=== PATIENT | female | born 1980 | race Caucasian/White ===

== ENCOUNTER 2018-05-02 11:10 | Emergency (ER) | payer OTHER ==
--- NOTE | 2018-05-02 12:07 | ED ---
Lower Extremity Injury HPI - General Chief Complaint: Extremity Injury, Lower Stated Complaint: lt foot injury Source: patient Mode of arrival: ambulatory Limitations: physical limitation - History of Present Illness Initial Comments: 37-year-old female who denies past medical history presenting today for chief complaint of left ankle pain. Patient states she was ago she rolled her left ankle, she states her ankles often develop bilaterally. She states this is nothing new however she noticed increasing pain following the incident. Patient denies fall, trauma to head or injury to any other action of any. Patient denies any knee pain. Patient does admit to some radiation towards the proximal foot. Patient has a numbness, tingling, loss sensation, paresthesias. Patient denies any coldness or pallor of the extremity. Patient states when pain persisted she presents today for evaluation. Patient states pain increases with range of motion as well as weightbearing. Patient has a significant soft tissue swelling or ecchymosis. Remainder of ROS negative, patient denies any recent fever, chills, shortness of breath, chest pain, back pain, abdominal pain, nausea or vomiting, numbness or tingling, dysuria or hematuria, constipation or diarrhea, headaches or visual changes, or any other complaints. Upon arrival patient is well-appearing, no signs of acute distress. Patient states she's been taking ibuprofen and Tylenol for pain management. Vital signs within acceptable limits. - Related Data Allergies Allergy/AdvReac Type Severity Reaction Status Date / Time cephalexin [From Keflex] Allergy Unknown Verified 05/02/18 11:58 Childhood ciprofloxacin [From Cipro] Allergy Rash/Hives Verified 05/02/18 11:59 erythromycin base Allergy Anaphylaxis Verified 05/02/18 11:59 Penicillins Allergy Unknown Verified 05/02/18 11:58 Childhood Sulfa (Sulfonamide Allergy Unknown Verified 05/02/18 11:58 Antibiotics) Childhood Review of Systems ROS Statement: Those systems with pertinent positive or pertinent negative responses have been documented in the HPI. ROS Other: All systems not noted in ROS Statement are negative. Past Medical History Past Medical History: Asthma, Fibromyalgia History of Any Multi-Drug Resistant Organisms: None Reported Past Surgical History: Ablation, Tubal Ligation Past Psychological History: No Psychological Hx Reported Smoking Status: Current every day smoker Past Alcohol Use History: None Reported Past Drug Use History: None Reported General Exam - General Exam Comments Initial Comments: General: The patient is awake and alert, in no distress, and does not appear acutely ill. Eye: Pupils are equal, round and reactive to light, extra-ocular movements are intact. No nystagmus. There is normal conjunctiva bilaterally. No signs of icterus. Cardiovascular: There is a regular rate and rhythm. No murmur, rub or gallop is appreciated. Respiratory: Lungs are clear to auscultation, respirations are non-labored, breath sounds are equal. No wheezes, stridor, rales, or rhonchi. Musculoskeletal: Mild soft tissue swelling noted along the lateral aspect of the left ankle. This is increasing comparison with the right. No ecchymosis. Patient admits to tenderness to patient along the lateral aspect of the left ankle. There is no evidence of wrist palpation of the proximal tibia and fibula. Extensor mechanism intact. No bogginess noted of the Achilles tendon. [place] intact, Normal ROM at the left ankle with eversion, inversion, plantar flexion and dorsiflexion. Strength 5/5. Sensation intact of the lower extremities equally bilaterally both proximal and distal to injury.. DP pulses equal bilaterally 2+. Neurological: A&O x 3. CN II-XII intact, There are no obvious motor or sensory deficits. Coordination appears grossly intact. Speech is normal. Skin: Skin is warm and dry and no rashes or lesions are noted. Psychiatric: Cooperative, appropriate mood & affect, normal judgment. Limitations: physical limitation Course Vital Signs 05/02/18 05/02/18 11:54 12:42 Temperature 98.1 F 98.2 F Pulse Rate 79 74 Respiratory 18 16 Rate Blood Pressure 131/91 128/87 O2 Sat by Pulse 99 98 Oximetry Medical Decision Making - Medical Decision Making XR obtained revealing. Pt PE findings concerning for mild sprain. Pt placed in Jorge Luis bandage. Patient given orthopedist surgery follow-up given persistence of pain. Patient instructed to continue taking ibuprofen and Tylenol for pain management, We also discussed rice instruction. At this time we feel patient is stable for discharge given she is neurovascularly intact, able to fully weight-bear and injury occurred 2 weeks ago. Patient is agreeable plan. I discussed the case with Dr. Prieto he agreed with impression and plan. Patient is discharged in stable condition. All imaging studies were reviewed by myself personally. Concur with radiology findings. Disposition Clinical Impression: Left ankle sprain Disposition: HOME SELF-CARE Condition: Good Instructions: Ankle Sprain (ED), R.I.C.E. Treatment (ED) Additional Instructions: Please use medication as discussed. Please follow-up with orthopedic surgery in next week. Please return to emergency room if the symptoms increase or worsen or for any other concerns. Is patient prescribed a controlled substance at d/c from ED?: No Referrals: Sherri Arevalo MD [Primary Care Provider] - 1-2 days Laurent Sal MD [STAFF PHYSICIAN] - 1-2 days Time of Disposition: 12:28
--- NOTE | 2018-05-02 12:22 | XR ---
EXAMINATION TYPE: XR foot complete LT DATE OF EXAM: 05/02/2018 COMPARISON: None HISTORY: Pain left foot and ankle following rolling injury today TECHNIQUE: Three-view left foot FINDINGS: Plantar calcaneal heel spur and Achilles tendon calcaneal heel spurs are present. Soft tissues are normal. No acute fractures are evident. Joint spaces are preserved. Follow-up study can be performed 7-10 days from acute trauma for continued pain. IMPRESSION: 1. No acute osseous abnormality left foot. 2. Calcaneal heel spurs.
--- NOTE | 2018-05-02 12:23 | XR ---
EXAMINATION TYPE: XR ankle complete LT DATE OF EXAM: 05/02/2018 COMPARISON: None HISTORY: Pain left foot and ankle following rolling injury TECHNIQUE: Three-view right ankle FINDINGS: Ankle mortise is intact. No acute fractures are evident. Soft tissues are normal. Calcaneal heel spurs are again evident. Follow-up studies can be performed 7-10 days from acute trauma for continued pain. IMPRESSION: 1. No acute osseous abnormality left ankle.
[2018-05-02 12:43] VITALS: BP 128/87; PULSE 74; RESP 16; TEMP 98.2
== END 2018-05-02 12:42 | disposition home or self-care (01) ==
LOC: EC 11:10
DX: S93.402A Sprain of unspecified ligament of left ankle, initial encounter (principal); F17.200 Nicotine dependence, unspecified, uncomplicated; Z88.1 Allergy status to other antibiotic agents; Z88.0 Allergy status to penicillin; Z88.2 Allergy status to sulfonamides; X50.1XXA Overexertion from prolonged static or awkward postures, initial encounter; Y92.009 Unspecified place in unspecified non-institutional (private) residence as the place of occurrence of the external cause
CPT/HCPCS: 99283

== ENCOUNTER → 2019-01-21 | Outpatient (CLI) | payer OTHER ==
--- NOTE | 2019-01-21 17:38 | MR ---
EXAMINATION TYPE: MR brain wo/w con DATE OF EXAM: 01/21/2019 COMPARISON: HISTORY: Other fatigue / Weakness TECHNIQUE: Multiplanar, multisequence images of the brain and brainstem is performed without and with IV contras t, utilizing 7.5 mL intravenous Gadavist . FINDINGS: Ventricles have normal size. There is no mass effect nor midline shift. There is no sign of intracran ial hemorrhage. There is no evidence of cortical infarct. Corpus callosum appears normal. Sella turci ca appears normal. The ramon-white matter structures have fairly normal signal pattern. There is a sin gle 5 mm focus of increased signal in the left temporal lobe white matter. There are a few 2 mm foci of increased signal in the left posterior temporal lobe white matter. IMPRESSION: There are left temporal lobe scattered white matter high signal foci at the ramon-white ma tter junction. This could relate to focal chronic small vessel ischemia. Otherwise negative exam. I d o not suspect demyelinating disease.
== END | disposition home or self-care (01) ==
LOC: RADMRIMAIN 14:46
PROVIDERS: ATTEND Family Medicine
DX: R53.83 Other fatigue (principal); R53.1 Weakness; H57.89 Other specified disorders of eye and adnexa; Z91.89 Other specified personal risk factors, not elsewhere classified
CPT/HCPCS: 70553; A9585

== ENCOUNTER → 2019-02-17 | Outpatient (CLI) | payer OTHER ==
--- NOTE | 2019-02-20 19:03 | P.PN ---
Progress Note - Text Progress Note Date: 02/20/19 This is a report on the 24-hour DCG. Baseline EKG showed sinus rhythm. Patient remained in sinus rhythm throughout the recording with an average heart rate of 87. The minimum was 51 and maximum 37. Occasional APCs and PVCs were noted. No accompanying diary. Final impression: #1. Sinus rhythm. #2 occasional APCs. #3 occasional PVCs. #4. No diary
--- NOTE | 2019-02-21 11:11 | HM ---
This is a report on the 24-hour DCG. Baseline EKG showed sinus rhythm. Patient remained in sinus rhythm throughout the recording with an average heart rate of 87. The minimum was 51 and maximum 37. Occasional APCs and PVCs were noted. No accompanying diary. Final impression: #1. Sinus rhythm. #2 occasional APCs. #3 occasional PVCs. #4. No diary MTDD
== END ==
LOC: RADECHMAIN 08:19
PROVIDERS: ATTEND Psychiatry & Neurology Neurology
DX: I49.1 Atrial premature depolarization (principal); I49.3 Ventricular premature depolarization
CPT/HCPCS: 93225; 93226

== ENCOUNTER → 2020-05-01 | Outpatient (CLI) | payer OTHER | END | disposition home or self-care (01) | LOC: LABWHC1 12:51 | PROVIDERS: ATTEND Nurse Practitioner Family | DX: Z20.828 Contact with and (suspected) exposure to other viral communicable diseases (principal) | CPT/HCPCS: U0003; C9803 ==

== ENCOUNTER 2020-07-25 09:18 | Day surgery (SDC) | payer OTHER ==
[~2020-07-25 09:18] MED LIST: LIDOCAINE 1% (10MG/ML) FOR IV START INTRADERMA PRN
[2020-07-25] MEDS ORDERED: LIDOCAINE 1% (10MG/ML) FOR IV START SQ ONE (10:35)
[2020-07-25 10:38] VITALS: TEMP 98.2
[2020-07-25] MEDS: LACTATED RINGERS 1,000 ML IV SCH ×2 (10:38→11:12)
[2020-07-25] MEDS ORDERED: LIDOCAINE 1% INJ 10MG/ML (20 ML MDV) ONE (11:33)
[2020-07-25] MEDS ORDERED: PROPOFOL 10 MG/ML 20 ML VIAL IV ONE (11:33)
--- NOTE | 2020-07-25 11:48 | P.PCN ---
Date of Procedure: 07/25/20 Description of Procedure: BRIEF HISTORY: Patient is a 40-year-old female presenting for outpatient EGD for evaluation of epigastric abdominal pain. Patient has no history of heartburn and reports 3 years of epigastric abdominal pain. She describes burning and sharp pain and epigastric region of her abdomen. Denies any weight loss, hematemesis or GI bleeding. She does take Motrin as needed for pain. She was on omeprazole and Pepcid with no help. PROCEDURE PERFORMED: Esophagogastroduodenoscopy with biopsy. PREOPERATIVE DIAGNOSIS: Epigastric abdominal pain, GERD. ESTIMATED BLOOD LOSS: Minimal. IV sedation per anesthesia. PROCEDURE: After informed consent was obtained, the patient was brought into the endoscopy unit. IV sedation was administered by Anesthesia under continuous monitoring. Initially the Olympus GIF-190 video endoscope was inserted into the mouth. Esophagus intubated without any difficulty. It was gradually advanced into the stomach and duodenum and carefully examined. The bulb and the second part of the duodenum appeared normal, with biopsies taken to rule out celiac sprue. The scope at this time was withdrawn to the stomach, adequately insufflated with air, and upon careful examination, mucosa of the antrum, body, cardia and the fundus appeared normal, except for some mild scattered erythema in the antrum and body suggestive of mild gastritis biopsy. The scope was then withdrawn into the esophagus. The GE junction was located at 37 cm from the incisors and biopsied. The esophagus appeared normal. There were no erosions or ulcerations seen and the patient tolerated the procedure well. IMPRESSION: 1. Mild gastritis. 2. Biopsies of the duodenum, antrum body and GE junction. RECOMMENDATIONS: The findings of this examination were discussed with the patient and her family. Okay to resume diet. Okay to resume medications. Await pathology from biopsies. Follow up in the GI clinic as scheduled..
[2020-07-25 12:04] VITALS: BP 107/65; PULSE 74; RESP 17
== END 2020-07-25 12:35 | disposition home or self-care (01) ==
LOC: ORWHC2ENDO 09:18
PROVIDERS: ATTEND Internal Medicine
DX: K29.50 Unspecified chronic gastritis without bleeding (principal); K21.00 Gastro-esophageal reflux disease with esophagitis, without bleeding; Z79.899 Other long term (current) drug therapy; Z98.890 Other specified postprocedural states; J45.909 Unspecified asthma, uncomplicated; F17.200 Nicotine dependence, unspecified, uncomplicated; Z88.1 Allergy status to other antibiotic agents; Z88.0 Allergy status to penicillin; Z88.2 Allergy status to sulfonamides; Z88.8 Allergy status to other drugs, medicaments and biological substances
CPT/HCPCS: 81025; 88305; 43239; J2001; J2704

== ENCOUNTER → 2020-08-09 | Outpatient (CLI) | payer OTHER ==
--- NOTE | 2020-08-09 12:33 | US ---
EXAMINATION TYPE: US abdomen limited DATE OF EXAM: 08/09/2020 COMPARISON: NONE CLINICAL HISTORY: 40-year-old female R10.13 Epigastric pain. Patient states CT done elsewhere showed 2 gallstones. TECHNIQUE: Multiple sonographic images of the right upper quadrant are obtained. FINDINGS: EXAM MEASUREMENTS: Liver Length: 17.6 cm Gallbladder Wall: 0.4 cm CBD: 0.4 cm Right Kidney: 11.8 x 5.8 x 4.9 cm Pancreas: Only a small portion of the pancreatic head and neck is seen. Remainder is obscured by bow el gas shadowing. Liver: Borderline enlarged. Allowing for technical limitations due to the patient body habitus, no f ocal lesion is identified. Gallbladder: Gallbladder wall is mildly thickened up to 3.7 mm. Multiple small mobile gallstones are present measuring up to 1.2 cm. No surrounding fluid or abnormal distention. Evidence for sonographic Fernandez's sign: Yes CBD: Normal caliber. Right Kidney: No hydronephrosis. IMPRESSION: 1. Borderline hepatomegaly at 17.6 cm. 2. Cholelithiasis with mild gallbladder wall thickening. Findings suggest chronic cholecystitis. Ramirez bry, given a positive sonographic Fernandez sign, recommend clinical correlation to exclude early develo ping acute cholecystitis. There is no hydropic change that is generally seen with cystic duct obstruc tion. If further imaging evaluation is desired, HIDA scan can be considered. 3. No biliary ductal dilatation.
== END | disposition home or self-care (01) ==
LOC: RADUSWWP 08:10
PROVIDERS: ATTEND Internal Medicine Gastroenterology
DX: K80.20 Calculus of gallbladder without cholecystitis without obstruction (principal)
CPT/HCPCS: 76705

== ENCOUNTER → 2020-08-23 | Day surgery (SDC) | payer OTHER ==
[2020-08-20 12:00] VITALS: BMI 29.9
[~2020-08-23] MED LIST changes: +ACETAMINOPHEN TAB 500 MG TAB PO PRN; +BUPIVACAINE (PF) 0.25% 30 ML VIAL SQ ONE; +CLINDAMYCIN 900 MG in DEXTROSE 5% IN WATER 50 ML IVPB PRN; +DEXAMETHASONE SOD PHOSPHATE 4 MG/ML 1 ML VIAL IV ONE; +GENTAMICIN 360 MG in SODIUM CHLORIDE 0.9% 100 ML IVPB PRN; +GLYCOPYRROLATE 0.2 MG/ML 2 ML VIAL ONE; +HEPARIN SODIUM,PORCINE/PF 5,000 UNIT/0.5 ML SYRINGE SQ PRN; +HYDROcodone/APAP 7.5-325MG 1 EACH TAB ONE; +HYDROcodone/APAP 7.5-325MG 1 EACH TAB PO ONE; +LACTATED RINGERS 1,000 ML IV ONE; +LACTATED RINGERS 1,000 ML IV SCH; -LIDOCAINE 1% (10MG/ML) FOR IV START INTRADERMA PRN; +LIDOCAINE 1% INJ 10MG/ML (20 ML MDV) ONE; +MIDAZOLAM 2 MG/2 ML VIAL IV PRN; +MIDAZOLAM 2 MG/2 ML VIAL ONE; +NEOSTIGMINE 1 MG/ML 10 ML VIAL ONE; +ONDANSETRON 4 MG/2 ML VIAL IVP ONE; +ONDANSETRON 4 MG/2 ML VIAL ONE; +PROPOFOL 10 MG/ML 20 ML VIAL IV ONE; +ROCURONIUM 10 MG/ML (5 ML VIAL) IV ONE; +SCOPOLAMINE 1.5MG/72HR PATCH TRANSDERM ONE; +SUCCINYLCHOLINE CHLORIDE 100 MG/5 ML SYR IV ONE; +diphenhydrAMINE 50 MG/ML 1 ML VIAL IVP ONE; +fentaNYL (PF) 50 MCG/ML 2 ML AMP ONE
--- NOTE | 2020-08-23 11:34 | P.GSHP ---
History of Present Illness H&P Date: 08/23/20 Chief Complaint: Right upper quadrant pain This is a 32-year-old female who presents today for laparoscopically cholecystectomy. Patient has had issues with right upper quadrant pain. She is found have gallstones on workup. Past Medical History Past Medical History: Asthma, GERD/Reflux, Pneumonia Additional Past Medical History / Comment(s): constipation, RUQ pain, gallstones History of Any Multi-Drug Resistant Organisms: None Reported Past Surgical History: Tubal Ligation, Uterine Ablation Additional Past Surgical History / Comment(s): sinus surgery as a child, breasts lanced for infection, recent EGD Past Anesthesia/Blood Transfusion Reactions: No Reported Reaction, Postoperative Nausea & Vomiting (PONV) Additional Past Anesthesia/Blood Transfusion Reaction / Comment(s): states ponv she thought was from heavy pain medication Smoking Status: Current every day smoker - Past Family History Mother Family Medical History: No Reported History Medications and Allergies Home Medications Medication Instructions Recorded Confirmed Type Acetaminophen Tab [Tylenol Tab] 1,000 mg PO Q8HR PRN 07/23/20 08/20/20 History Cetirizine HCl [Zyrtec] 10 mg PO DAILY 07/23/20 08/20/20 History Cyanocobalamin (Vitamin B-12) 1,000 mcg PO Q48H 07/23/20 08/23/20 History [Vitamin B-12] Ergocalciferol (Vitamin D2) 1,250 mcg PO WEEKLY 07/23/20 08/23/20 History [Vitamin D2 (50,000 Iu)] Famotidine [Pepcid] 20 mg PO HS 07/23/20 08/20/20 History Ibuprofen [Motrin] 800 mg PO Q8H PRN 07/23/20 08/20/20 History Montelukast [Singulair] 10 mg PO HS 07/23/20 08/20/20 History Omalizumab [Xolair] 375 mg SQ Q14D 07/23/20 08/23/20 History Omeprazole [PriLOSEC] 40 mg PO DAILY 07/23/20 08/20/20 History amLODIPine BESYLATE 5 mg PO HS 07/23/20 08/20/20 History Ondansetron [Zofran] 4 mg PO Q8HR PRN 08/20/20 08/23/20 History traMADol HCL [Ultram] 50 - 100 mg PO Q6HR PRN 08/20/20 08/23/20 History Allergies Allergy/AdvReac Type Severity Reaction Status Date / Time cephalexin [From Keflex] Allergy Unknown Verified 08/23/20 11:14 Childhood ciprofloxacin [From Cipro] Allergy Rash/Hives Verified 08/23/20 11:14 erythromycin base Allergy Anaphylaxis Verified 08/23/20 11:14 Penicillins Allergy Unknown Verified 08/23/20 11:14 Childhood Sulfa (Sulfonamide Allergy Unknown Verified 08/23/20 11:14 Antibiotics) Childhood dichloralphenazone AdvReac Unknown Nausea & Verified 08/23/20 11:14 [From Midrin] Vomiting isometheptene [From Midrin] AdvReac Unknown Nausea & Verified 08/23/20 11:14 Vomiting Surgical - Exam Vital Signs Temp Pulse Resp BP Pulse Ox 97.5 F L 86 16 125/87 97 08/23/20 11:11 08/23/20 11:11 08/23/20 11:11 08/23/20 11:11 08/23/20 11:11 - General well developed, well nourished, no distress - Eyes PERRL - ENT normal pinna - Neck no masses - Respiratory normal expansion - Cardiovascular Rhythm: regular - Abdomen Abdomen: soft, non tender Assessment and Plan Assessment: Cholelithiasis. We'll perform laparoscopic cholecystectomy
--- NOTE | 2020-08-23 13:38 | P.OP ---
Date of Procedure: 08/23/20 Preoperative Diagnosis: Cholecystitis Postoperative Diagnosis: Cholecystitis Procedure(s) Performed: Laparoscopic cholecystectomy Anesthesia: BRYAN Surgeon: Eulogio Shoemaker Estimated Blood Loss (ml): 5 Pathology: other (Gallbladder) Condition: stable Disposition: PACU Description of Procedure: The patient was placed on the operating table. The patient received a general endotracheal tube anesthesia. The patients abdomen was prepped and draped in the usual sterile fashion. Through an infraumbilical stab incision, the fascia of the anterior abdominal wall was grasped with a pair of Kochers and then the Veress needle was placed in the peritoneal cavity. Position of the Veress needle was confirmed with positive drop test. The abdomen was then insufflated. After adequate insufflation, the 10 mm trocar was placed in the peritoneal cavity. Following this the laparoscope was placed in the peritoneal cavity. The patient was placed in the head-up, right side up position and then a 5 mm trocar was placed in the right lateral and right subcostal position under direct visualization. A 8 mm trocar was placed in the epigastric position. The gallbladder was grasped in the fundus and infundibulum. Traction on the gallbladder was placed in the lateral and the cephalad positions. The triangle of [place]ot was visualized.. The cystic duct was bluntly dissected until the union of the cystic duct and common bile duct was seen. A critical view of safety was achieved. The cystic duct was then divided and sealed with the Harmonic scissors. A PDS Endoloop was then placed throughout the cystic duct stump. The cystic artery divided and sealed with the Harmonic scissors. The gallbladder was then removed from the liver bed using Harmonic scissors. The gallbladder was then extracted through the epigastric port site. Operative field was checked for any bleeding spots and Harmonic scissors was used to coagulate the liver bed. The abdomen was irrigated. The trocars were removed. The skin was closed using interrupted 3-0 Vicryl suture. Dermabond dressing were applied. The patient tolerated the procedure well.
[2020-08-23 13:40] VITALS: TEMP 98
[2020-08-23] MEDS: HYDROmorphone 0.5 MG/0.5 ML SYRINGE IVP PRN ×4 (13:48→14:10)
[2020-08-23 14:40] VITALS: RESP 17
[2020-08-23 15:46] VITALS: BP 133/80; PULSE 82
== END | disposition home or self-care (01) ==
LOC: OR 10:51
PROVIDERS: ATTEND Surgery
DX: K80.12 Calculus of gallbladder with acute and chronic cholecystitis without obstruction (principal); J45.909 Unspecified asthma, uncomplicated; K21.9 Gastro-esophageal reflux disease without esophagitis; Z87.01 Personal history of pneumonia (recurrent); Z87.898 Personal history of other specified conditions; K59.00 Constipation, unspecified; Z98.51 Tubal ligation status; Z98.890 Other specified postprocedural states; F17.200 Nicotine dependence, unspecified, uncomplicated; Z79.899 Other long term (current) drug therapy; Z88.1 Allergy status to other antibiotic agents; Z88.0 Allergy status to penicillin; Z88.2 Allergy status to sulfonamides; Z88.8 Allergy status to other drugs, medicaments and biological substances; I10 Essential (primary) hypertension; Z97.2 Presence of dental prosthetic device (complete) (partial)
CPT/HCPCS: 81025; 88304; 47562; J2250; J1200; J1100; J2710; J2405; J2001; J3010; J1580; J0330; J2704; J1170; J1644

== ENCOUNTER → 2020-09-04 | Outpatient (CLI) | payer OTHER ==
[2020-09-04 15:00] LABS: HCT 43.5 % (37.2-46.3); HGB 14.2 g/dL (12.0-15.0); MCH 30.1 pg (27.0-32.0); MCHC 32.6 g/dL (32.0-37.0); MCV 92.4 fL (80.0-97.0); Mean Platelet Volume 10.1 fL (9.5-12.2); Platelet Count 449 X 10*3/uL (140-440); RBC 4.71 X 10*6/uL (4.10-5.20); RDW 11.8 % (11.5-14.5); WBC 10.73 X 10*3/uL (4.50-10.00)
[2020-09-05 02:10] LABS: African American GFR (CKD) 108.4 (60.0-200.0); Albumin 4.6 g/dL (3.80-4.90); Anion Gap 14.9 mmol/L (4.00-12.00); BUN/Creat Ratio 8.75 Ratio (12.00-20.00); Calcium 9.8 mg/dL (8.7-10.3); Carbon Dioxide 24.1 mmol/L (21.6-31.8); Globulin 2.3 g/dL (1.6-3.3); Non-African American GFR(CKD) 93.5 (60.0-200.0); Potassium 4.4 mmol/L (3.5-5.5); Total Bilirubin 0.6 mg/dL (0.3-1.2); Total Protein 6.9 g/dL (6.2-8.2)
== END | disposition home or self-care (01) ==
LOC: LABWHC1 07:49
PROVIDERS: ATTEND Surgery
DX: K80.50 Calculus of bile duct without cholangitis or cholecystitis without obstruction (principal)
CPT/HCPCS: 36415; 80053; 85027

== ENCOUNTER → 2020-09-11 | Outpatient (CLI) | payer OTHER ==
[2020-09-12 04:35] LABS: African American GFR (CKD) 108.4 (60.0-200.0); Albumin 4.5 g/dL (3.80-4.90); Albumin/Globulin Ratio 1.96 (1.60-3.17); Anion Gap 9.3 mmol/L (4.00-12.00); Calcium 9.7 mg/dL (8.7-10.3); Carbon Dioxide 26.7 mmol/L (21.6-31.8); Globulin 2.3 g/dL (1.6-3.3); Non-African American GFR(CKD) 93.5 (60.0-200.0); Potassium 4.5 mmol/L (3.5-5.5); Total Bilirubin 0.6 mg/dL (0.3-1.2); Total Protein 6.8 g/dL (6.2-8.2)
== END | disposition home or self-care (01) ==
LOC: LABWHC1 07:45
PROVIDERS: ATTEND Surgery
DX: K80.70 Calculus of gallbladder and bile duct without cholecystitis without obstruction (principal)
CPT/HCPCS: 36415; 80053

== ENCOUNTER 2020-09-19 20:14 | Emergency (ER) | payer OTHER ==
[2020-09-19] MEDS ORDERED: SODIUM CHLORIDE 0.9% 1,000 ML IV STA (23:20)
[2020-09-19] MEDS ORDERED: ONDANSETRON 4 MG/2 ML VIAL IVP STA (23:20)
[2020-09-19] MEDS ORDERED: MORPHINE SULFATE 4 MG/ML SYRINGE IV STA (23:20)
[2020-09-20 00:25] LABS: Basophils # (A) 0.1 k/uL (0-0.2); Basophils % (A) 1 %; Eosinophils # (A) 0.3 k/uL (0-0.7); Eosinophils % (A) 3 %; HCT 42.6 % (34.0-46.0); HGB 14.7 gm/dL (11.4-16.0); Lymphocytes # (A) 3.9 k/uL (1.0-4.8); Lymphocytes % (A) 30 %; MCH 30.3 pg (25.0-35.0); MCHC 34.6 g/dL (31.0-37.0); MCV 87.7 fL (80.0-100.0); Mean Platelet Volume 7.4; Monocytes # (A) 0.7 k/uL (0-1.0); Monocytes % (A) 5 %; Neutrophils # (A) 8.1 k/uL (1.3-7.7); Neutrophils % (A) 61 %; Platelet Count 333 k/uL (150-450); RBC 4.86 m/uL (3.80-5.40); WBC 13.2 k/uL (3.8-10.6)
--- NOTE | 2020-09-20 00:25 | CT ---
EXAMINATION TYPE: CT abdomen pelvis w con DATE OF EXAM: 09/20/2020 COMPARISON: None HISTORY: RUQ pain; recent cholecystectomy CT DLP: 1070.2 mGycm Automated exposure control for dose reduction was used. CONTRAST: Performed with IV Contrast, patient injected with 100 mL of Isovue 300. Images obtained from the diaphragm to the floor the pelvis with IV contrast. Lung bases are clear. There is no pleural effusion. Heart size is normal. There is no pericardial eff usion. There is no adrenal mass. Kidneys show satisfactory contrast opacification. There is no hydronephrosi s. Ureters are not dilated. Delayed images show normal renal excretion. There is 1 cm cortical cyst p osterior left kidney. Liver spleen stomach pancreas appear intact. The bile ducts are not dilated. There are clips from cho lecystectomy. There is no retroperitoneal adenopathy. Appendix is posterior and appears normal. Bladder distends sm oothly. There is no inguinal hernia. There is no free fluid in the pelvis. Uterus is anteverted. Ther e is no pelvic mass. Lumbar vertebra have normal spacing and alignment. Posterior elements are intact . There is no compression fracture. The bony pelvis is intact. Hip joints appear normal. Sacroiliac j oints appear normal. There is no mesenteric edema. There is no ascites or free air. There is no bowel obstruction. IMPRESSION: Negative CT scan abdomen and pelvis. No evidence of a bile leak. No dilated ducts.
[2020-09-20 00:28] LABS: Appearance,Urine Clear (Clear); Bilirubin,Urine Negative (Negative); Blood,Urine Negative (Negative); Color,Urine Yellow; Glucose,Urine (UA) Negative (Negative); Ketones,Urine Negative (Negative); Leukocyte Esterase,Urine Negative (Negative); Nitrite,Urine Negative (Negative); PH, Urine 5.5 (5.0-8.0); Protein,Urine Negative (Negative); Specific Gravity,Urine 1.016 (1.001-1.035); Urobilinogen,Urine <2.0 mg/dL (<2.0)
[2020-09-20 00:35] LABS: ALT 24 U/L (4-34); AST 27 U/L (14-36); African American GFR (CKD) >90 (>60 ml/min/1.73 sqM); Albumin 4.5 g/dL (3.5-5.0); Alkaline Phosphatase 108 U/L (38-126); Anion Gap 10 mmol/L; Blood Urea Nitrogen 9 mg/dL (7-17); Calcium 9.7 mg/dL (8.4-10.2); Carbon Dioxide 27 mmol/L (22-30); Chloride 102 mmol/L (98-107); Glucose 101 mg/dL (74-99); Lipase 73 U/L (23-300); Non-African American GFR(CKD) >90 (>60 ml/min/1.73 sqM); Potassium 3.7 mmol/L (3.5-5.1); Sodium 139 mmol/L (137-145); Total Bilirubin 0.4 mg/dL (0.2-1.3); Total Protein 7.2 g/dL (6.3-8.2)
[2020-09-20] MEDS ORDERED: ACET/COD 300 MG/30 MG STARTER PACK 6 TAB BTL PO STA (00:55)
--- NOTE | 2020-09-20 00:55 | ED ---
Abdominal Pain HPI - General Chief Complaint: Abdominal Pain Stated Complaint: Stomach Pain Time Seen by Provider: 09/19/20 21:28 Source: patient Mode of arrival: ambulatory Limitations: no limitations - History of Present Illness Initial Comments: 40 year-old female patient presents to the emergency department for evaluation of right upper quadrant abdominal pain. Patient states that she has had pain since having cholecystectomy about [address] Shoemaker. Patient states that she was eating tonight when her symptoms worsened. Reports a sharp pain to the right upper quadrant. Pain is non-radiating. Denies nausea or vomiting. States she always has diarrhea. Denies any hematochezia or melena. Denies fever or chills. Did have a CT scan two weeks ago that showed fluid in her abdomen. States her liver enzymes were elevated at that time as well. Patient denies any recent rash, cough, shortness of breath, chest pain, back pain, numbness, tingling, dizziness, weakness, hematuria, dysuria, urinary urgency, urinary frequency, headache, visual changes, or any other complaints. - Related Data Home Medications Medication Instructions Recorded Confirmed Acetaminophen Tab [Tylenol Tab] 1,000 mg PO Q8HR PRN 07/23/20 08/20/20 Cetirizine HCl [Zyrtec] 10 mg PO DAILY 07/23/20 08/20/20 Cyanocobalamin (Vitamin B-12) 1,000 mcg PO Q48H 07/23/20 08/23/20 [Vitamin B-12] Ergocalciferol (Vitamin D2) 1,250 mcg PO WEEKLY 07/23/20 08/23/20 [Vitamin D2 (50,000 Iu)] Famotidine [Pepcid] 20 mg PO HS 07/23/20 08/20/20 Ibuprofen [Motrin] 800 mg PO Q8H PRN 07/23/20 08/20/20 Montelukast [Singulair] 10 mg PO HS 07/23/20 08/20/20 Omalizumab [Xolair] 375 mg SQ Q14D 07/23/20 08/23/20 Omeprazole [PriLOSEC] 40 mg PO DAILY 07/23/20 08/20/20 amLODIPine BESYLATE 5 mg PO HS 07/23/20 08/20/20 Ondansetron [Zofran] 4 mg PO Q8HR PRN 08/20/20 08/23/20 traMADol HCL [Ultram] 50 - 100 mg PO Q6HR PRN 08/20/20 08/23/20 Previous Rx's Medication Instructions Recorded Acetaminophen Tab [Tylenol] 650 mg PO Q6H #30 tab 08/23/20 Docusate [Colace] 100 mg PO BID #20 capsule 08/23/20 Ibuprofen [Motrin] 600 mg PO Q6HR PRN #40 tab 08/23/20 oxyCODONE HCL [OxyIR] 5 mg PO Q6H PRN 3 Days #10 tab 08/23/20 Allergies Allergy/AdvReac Type Severity Reaction Status Date / Time cephalexin [From Keflex] Allergy Unknown Verified 09/19/20 20:30 Childhood ciprofloxacin [From Cipro] Allergy Rash/Hives Verified 09/19/20 20:30 erythromycin base Allergy Anaphylaxis Verified 09/19/20 20:30 Penicillins Allergy Unknown Verified 09/19/20 20:30 Childhood Sulfa (Sulfonamide Allergy Unknown Verified 09/19/20 20:30 Antibiotics) Childhood dichloralphenazone AdvReac Unknown Nausea & Verified 09/19/20 20:30 [From Midrin] Vomiting isometheptene [From Midrin] AdvReac Unknown Nausea & Verified 09/19/20 20:30 Vomiting Review of Systems ROS Statement: Those systems with pertinent positive or pertinent negative responses have been documented in the HPI. ROS Other: All systems not noted in ROS Statement are negative. Past Medical History Past Medical History: No Reported History Additional Past Medical History / Comment(s): constipation, stomach pain. History of Any Multi-Drug Resistant Organisms: None Reported Past Surgical History: Cholecystectomy Additional Past Surgical History / Comment(s): sinus surgery as a child, breasts lanced for infection Past Anesthesia/Blood Transfusion Reactions: No Reported Reaction, Postoperative Nausea & Vomiting (PONV) Additional Past Anesthesia/Blood Transfusion Reaction / Comment(s): states ponv she thought was from heavy pain medication Past Psychological History: No Psychological Hx Reported Smoking Status: Current every day smoker Past Alcohol Use History: None Reported Past Drug Use History: None Reported - Past Family History Mother Family Medical History: No Reported History General Exam Limitations: no limitations General appearance: alert, in no apparent distress, other (This is a well- developed, well-nourished adult female patient in no acute distress. Vital sig ns upon presentation are temperature 98.0F, pulse 111, respirations 18, blood pressure 139/84, pulse ox 97% on room air.) Eye exam: Present: normal appearance, PERRL, EOMI. Absent: scleral icterus, conjunctival injection, periorbital swelling ENT exam: Present: normal exam, normal oropharynx, mucous membranes moist Respiratory exam: Present: normal lung sounds bilaterally. Absent: respiratory distress, wheezes, rales, rhonchi, stridor Cardiovascular Exam: Present: regular rate, normal rhythm, normal heart sounds. Absent: systolic murmur, diastolic murmur, rubs, gallop, clicks GI/Abdominal exam: Present: soft, tenderness (Right upper quadrant), normal bowel sounds. Absent: distended, guarding, rebound, rigid Back exam: Present: normal inspection. Absent: CVA tenderness (R), CVA tenderness (L) Neurological exam: Present: alert, oriented X3, CN II-XII intact Psychiatric exam: Present: normal affect, normal mood Skin exam: Present: warm, dry, intact, normal color. Absent: rash Course Vital Signs 09/19/20 20:30 Temperature 98.0 F Pulse Rate 111 H Respiratory 18 Rate Blood Pressure 139/84 O2 Sat by Pulse 97 Oximetry Medical Decision Making - Medical Decision Making 40-year-old female patient presents to the emergency department today for evaluation of right upper quadrant pain. Physical examination did reveal right upper quadrant tenderness. No CVA tenderness. Abdominal incisions are well- healed with no surrounding erythema or swelling. Labs reviewed and did reveal elevated white blood cell count at 13.2. CT abdomen and pelvis was obtained and was negative. Did discuss findings and results with the patient. She'll be dis charged follow up with her surgeon for further evaluation. Return parameters were discussed in detail. She verbalizes understanding and agrees with this plan. Case discussed with my attending Dr. Hernandez. - Lab Data Result diagrams: 09/19/20 23:20 09/19/20 23:20 Lab Results 09/19/20 09/19/20 09/19/20 Range/Units 23:20 23:20 23:20 WBC 13.2 H (3.8-10.6) k/uL RBC 4.86 (3.80-5.40) m/uL Hgb 14.7 (11.4-16.0) gm/dL Hct 42.6 (34.0-46.0) % MCV 87.7 (80.0-100.0) fL MCH 30.3 (25.0-35.0) pg MCHC 34.6 (31.0-37.0) g/dL RDW 12.0 (11.5-15.5) % Plt Count 333 (150-450) k/uL MPV 7.4 Neutrophils % 61 % Lymphocytes % 30 % Monocytes % 5 % Eosinophils % 3 % Basophils % 1 % Neutrophils # 8.1 H (1.3-7.7) k/uL Lymphocytes # 3.9 (1.0-4.8) k/uL Monocytes # 0.7 (0-1.0) k/uL Eosinophils # 0.3 (0-0.7) k/uL Basophils # 0.1 (0-0.2) k/uL Sodium 139 (137-145) mmol/L Potassium 3.7 (3.5-5.1) mmol/L Chloride 102 (98-107) mmol/L Carbon Dioxide 27 (22-30) mmol/L Anion Gap 10 mmol/L BUN 9 (7-17) mg/dL Creatinine 0.70 (0.52-1.04) mg/dL Est GFR (CKD-EPI)AfAm >90 (>60 ml/min/1.73 sqM) Est GFR (CKD-EPI)NonAf >90 (>60 ml/min/1.73 sqM) Glucose 101 H (74-99) mg/dL Plasma Lactic Acid [place] (0.7-2.0) mmol/L Calcium 9.7 (8.4-10.2) mg/dL Total Bilirubin 0.4 (0.2-1.3) mg/dL AST 27 (14-36) U/L ALT 24 (4-34) U/L Alkaline Phosphatase 108 (38-126) U/L Total Protein 7.2 (6.3-8.2) g/dL Albumin 4.5 (3.5-5.0) g/dL Lipase 73 (23-300) U/L Urine Color Yellow Urine Appearance Clear (Clear) Urine pH 5.5 (5.0-8.0) Ur Specific [place] 1.016 (1.001-1.035) Urine Protein Negative (Negative) Urine Glucose (UA) Negative (Negative) Urine Ketones Negative (Negative) Urine Blood Negative (Negative) Urine Nitrite Negative (Negative) Urine Bilirubin Negative (Negative) Urine Urobilinogen <2.0 (<2.0) mg/dL Ur Leukocyte Esterase Negative (Negative) 09/19/20 Range/Units 23:20 WBC (3.8-10.6) k/uL RBC (3.80-5.40) m/uL Hgb (11.4-16.0) gm/dL Hct (34.0-46.0) % MCV (80.0-100.0) fL MCH (25.0-35.0) pg MCHC (31.0-37.0) g/dL RDW (11.5-15.5) % Plt Count (150-450) k/uL MPV Neutrophils % % Lymphocytes % % Monocytes % % Eosinophils % % Basophils % % Neutrophils # (1.3-7.7) k/uL Lymphocytes # (1.0-4.8) k/uL Monocytes # (0-1.0) k/uL Eosinophils # (0-0.7) k/uL Basophils # (0-0.2) k/uL Sodium (137-145) mmol/L Potassium (3.5-5.1) mmol/L Chloride (98-107) mmol/L Carbon Dioxide (22-30) mmol/L Anion Gap mmol/L BUN (7-17) mg/dL Creatinine (0.52-1.04) mg/dL Est GFR (CKD-EPI)AfAm (>60 ml/min/1.73 sqM) Est GFR (CKD-EPI)NonAf (>60 ml/min/1.73 sqM) Glucose (74-99) mg/dL Plasma Lactic Acid [place] 1.0 (0.7-2.0) mmol/L Calcium (8.4-10.2) mg/dL Total Bilirubin (0.2-1.3) mg/dL AST (14-36) U/L ALT (4-34) U/L Alkaline Phosphatase (38-126) U/L Total Protein (6.3-8.2) g/dL Albumin (3.5-5.0) g/dL Lipase (23-300) U/L Urine Color Urine Appearance (Clear) Urine pH (5.0-8.0) Ur Specific [place] (1.001-1.035) Urine Protein (Negative) Urine Glucose (UA) (Negative) Urine Ketones (Negative) Urine Blood (Negative) Urine Nitrite (Negative) Urine Bilirubin (Negative) Urine Urobilinogen (<2.0) mg/dL Ur Leukocyte Esterase (Negative) - Radiology Data Radiology results: report reviewed, image reviewed CT abdomen and pelvis with contrast was obtained. Report was reviewed in its entirety. Impression by Dr. Campbell shows negative computed tomography scan abdomen and pelvis. No evidence of a bile leak. No dilated ducts. Disposition Clinical Impression: Abdominal pain Disposition: HOME SELF-CARE Condition: Good Instructions (If sedation given, give patient instructions): Abdominal Pain (ED) Additional Instructions: Follow up with Dr. Shoemaker as soon as possible. Return to the emergency department for further evaluation for any new, worsening, or concerning symptom s. Is patient prescribed a controlled substance at d/c from ED?: No Referrals: Karen Orlando MD [Primary Care Provider] - 1-2 days Time of Disposition: 00:55
[2020-09-20 01:40] VITALS: BP 122/88; PULSE 84; RESP 15; TEMP 97.1
== END 2020-09-20 01:12 | disposition home or self-care (01) ==
LOC: EC 20:14
DX: R10.11 Right upper quadrant pain (principal); F17.200 Nicotine dependence, unspecified, uncomplicated; Z79.1 Long term (current) use of non-steroidal anti-inflammatories (NSAID); Z88.0 Allergy status to penicillin; Z88.1 Allergy status to other antibiotic agents; Z88.2 Allergy status to sulfonamides; Z90.49 Acquired absence of other specified parts of digestive tract
CPT/HCPCS: 36415; 80053; 83605; 83690; 85025; 81003; 74177; 99284; 96374; 96375; 96361; J2270; J2405; Q9967

== ENCOUNTER → 2022-07-29 | Outpatient (CLI) | payer OTHER ==
[2022-07-29 10:33] LABS: Basophils # (A) 0.03 X 10*3/uL (0.00-0.10); Basophils % (A) 0.4 %; Eosinophils # (A) 0.11 X 10*3/uL (0.04-0.35); Eosinophils % (A) 1.3 %; HCT 45.1 % (37.2-46.3); HGB 14.7 g/dL (12.0-15.0); Immature Grans, Automated 0.5 %; Lymphocytes # (A) 2.61 X 10*3/uL (0.90-5.00); Lymphocytes % (A) 30.7 %; MCH 28.5 pg (27.0-32.0); MCHC 32.6 g/dL (32.0-37.0); MCV 87.6 fL (80.0-97.0); Mean Platelet Volume 10.7 fL (9.5-12.2); Monocytes # (A) 0.69 X 10*3/uL (0.20-1.00); Monocytes % (A) 8.1 %; NRBC Per 100 WBC 0 /100 WBCS (0.0-0.0); Neutrophils # (A) 5.01 X 10*3/uL (1.80-7.70); Platelet Count 282 X 10*3/uL (140-440); RBC 5.15 X 10*6/uL (4.10-5.20); RDW 12.8 % (11.5-14.5); WBC 8.49 X 10*3/uL (4.50-10.00)
[2022-07-29 13:41] LABS: ALT 45 U/L (8-44); AST 31 U/L (13-35); African American GFR (CKD) 121.6 (60.0-200.0); Albumin 4.2 g/dL (3.8-4.9); Albumin/Globulin Ratio 1.75 (1.60-3.17); Alkaline Phosphatase 95 U/L (41-126); BUN/Creat Ratio 11.32 Ratio (12.00-20.00); Blood Urea Nitrogen 8.1 mg/dL (9.0-27.0); Calcium 9.4 mg/dL (8.7-10.3); Carbon Dioxide 21.6 mmol/L (20.0-27.5); Chloride 105 mmol/L (96-109); Chol/HDL Ratio 3.91 Ratio; Globulin 2.4 g/dL (1.6-3.3); Glucose 130 mg/dL (70-110); LDL Cholesterol,Calculated 66.5 mg/dL (0.0-131.0); Non-African American GFR(CKD) 104.9 (60.0-200.0); Potassium 4.4 mmol/L (3.5-5.5); Sodium 139 mmol/L (135-145); Total Protein 6.6 g/dL (6.2-8.2)
== END | disposition home or self-care (01) ==
LOC: LABWHC1 06:50
PROVIDERS: ATTEND Nurse Practitioner Family
DX: I10 Essential (primary) hypertension (principal); E78.1 Pure hyperglyceridemia; K21.9 Gastro-esophageal reflux disease without esophagitis; R41.89 Other symptoms and signs involving cognitive functions and awareness; R73.03 Prediabetes
CPT/HCPCS: 36415; 80053; 80061; 82306; 82607; 82746; 83036; 83735; 84443; 85025

== ENCOUNTER → 2023-04-20 | Outpatient (CLI) | payer OTHER ==
--- NOTE | 2023-04-22 22:28 | MM ---
Reason for Exam: Screening (asymptomatic). Last mammogram was performed 11 year(s) and 5 month(s) ago. Patient History: Menarche at age 13. First Full-Term at age 22. Maternal aunt had breast cancer, age 41. Risk Values: Swati 5 year model risk: 0.5%. NCI Lifetime model risk: 9.9%. Prior Study Comparison: No prior studies available for comparison. Tissue Density: There are scattered fibroglandular densities. Findings: Analyzed By CAD. There is an area of central nodularity on the right CC view and anterior to middle depth for which further evaluation is recommended. No suspicious microcalcification or other discrete abnormality is seen. Overall Assessment: Incomplete: need additional imaging evaluation, BI-RAD 0 Management: Special View Mammogram of the right breast. Diagnostic Breast Ultrasound of the right breast. Additional views to include spot 3-D CC, 3-D CC rolled, and bradycardia lateral views. Targeted right breast ultrasound if any persisting abnormality. [facility] will attempt to contact patient to return for supplemental views and ultrasound if indicated. Electronically signed and approved by: Rita Hinson M.D. Radiologist
== END | disposition home or self-care (01) ==
LOC: RADMAMWWP 15:22
PROVIDERS: ATTEND Internal Medicine
DX: Z12.31 Encounter for screening mammogram for malignant neoplasm of breast (principal); Z80.3 Family history of malignant neoplasm of breast
CPT/HCPCS: 77063; 77067

== ENCOUNTER → 2023-05-10 | Outpatient (CLI) | payer OTHER ==
--- NOTE | 2023-05-10 14:45 | MM ---
Reason for Exam: Additional evaluation requested from abnormal screening. Last screening mammogram was performed less than 1 month ago. Patient History: Menarche at age 13. First Full-Term at age 22. Maternal aunt had breast cancer, age 41. Risk Values: Swati 5 year model risk: 0.5%. NCI Lifetime model risk: 9.9%. Prior Study Comparison: 11/19/2011 Bilateral Screening Mammogram, [facility]. 04/20/2023 Bilateral MG 3D screening mammo w/cad, [facility]. Tissue Density: Right: The breast tissue is heterogeneously dense. This may lower the sensitivity of mammography. Findings: Analyzed By CAD. There is a 0.6 cm nodule within the 8:00 anterior position right breast 4 cm from the nipple. Additional evaluation with ultrasound is recommended. Scar markers are utilized for prior abnormalities. Overall Assessment: Incomplete: need additional imaging evaluation, BI-RAD 0 Management: Diagnostic Breast Ultrasound of the right breast. A negative mammogram report should not preclude additional follow up of suspicious palpable abnormalities. Patient should continue monthly self breast exam. A clinical breast exam by your physician is recommended on an annual basis and results should be correlated with mammographic findings. Electronically signed and approved by: Yuri Perez D.O. Radiologis
--- NOTE | 2023-05-10 15:15 | USB ---
Reason for Exam: Additional evaluation requested from prior study. Patient History: Menarche at age 13. First Full-Term at age 22. Maternal aunt had breast cancer, age 41. Risk Values: Swati 5 year model risk: 0.5%. NCI Lifetime model risk: 9.9%. Technique: Method: Targeted. Prior Study Comparison: 11/19/2011 Bilateral Screening Mammogram, [facility]. 04/20/2023 Bilateral MG 3D screening mammo w/cad, [facility]. Findings: The lower outer quadrant of the right breast, the axilla of the right breast and the retroareolar of the right breast were scanned. There is a 0.6 x 0.5 x 0.5 cm hypoechoic area with good posterior wall enhancement 6:00 position 4 cm from nipple. Finding appears to correspond to the mammographic finding. Findings appear suggestive for a complex cyst with internal debris. Overall Assessment: Suspicious, BI-RAD 4 Management: Aspiration of the right breast. A clinical breast exam by your physician is recommended on an annual basis and results should be correlated with mammographic findings. This exam should not preclude additional follow-up of suspicious palpable abnormalities. Results were given to the patient verbally at the time of exam. Electronically signed and approved by: Yuri Perez D.O. Radiologis
== END | disposition home or self-care (01) ==
LOC: RADMAMWWP 14:16
PROVIDERS: ATTEND Internal Medicine
DX: R92.331 Mammographic heterogeneous density, right breast (principal); Z80.3 Family history of malignant neoplasm of breast
CPT/HCPCS: 77061; 77065

== ENCOUNTER → 2023-05-26 | Day surgery (SDC) | payer OTHER ==
--- NOTE | 2023-05-31 13:33 | MM ---
Reason for Exam: Post Procedure Mammogram. Last screening mammogram was performed 1 month(s) ago. Patient History: Menarche at age 13. First Full-Term at age 22. Maternal aunt had breast cancer, age 41. Risk Values: Swati 5 year model risk: 0.5%. NCI Lifetime model risk: 9.9%. Prior Study Comparison: 11/19/2011 Bilateral Screening Mammogram, [facility]. 04/20/2023 Bilateral MG 3D screening mammo w/cad, [facility]. 05/10/2023 Right MG 3D work up w/cad RT, [facility]. Tissue Density: Right: There are scattered fibroglandular densities. Pathology Description: Location: 8 o'clock. Marker Left Behind. Needle Type: Mammotome Cores: 4 Gauge: 13 Initial ultrasound again shows the oval hypoechoic lesion measuring 8 mm at the 8:00 position of right breast. Targeted for biopsy. The procedure of ultrasound guided core biopsy was explained to the patient. Benefits, alternatives, and risks were discussed. An informed consent was then obtained. The patient was placed in supine positioning for imaging and for the procedure. The overlying skin was prepped and draped in usual sterile fashion. Lidocaine was used as anesthetic into the skin and subcutaneous tissue up to area of concern in the 8:00 right breast. Under ultrasound guidance, a 13-gauge vacuum-assisted mammotome Elite biopsy gun was used to obtain 4 core samples. Following this, a [place] angelina butterfly clip was left in lesion. The patient tolerated the procedure well without any immediate complication. The patient was kept in the radiology department for short stay after the procedure and then discharged home in stable condition. Postprocedure mammogram: The patient was transferred to mammography for physician ordered post procedure mammogram for clip placement verification. Postprocedure mammogram shows clip at the site of mammographic nodularity. IMPRESSION: Successful, uncomplicated ultrasound guided core biopsy of the 8:00 mammographic correlate right breast, full pathology results to follow. Pathology Results: Result: Benign, Fibroadenoma. RIGHT BREAST, EIGHT O'CLOCK, ULTRASOUND GUIDED NEEDLE CORE BIOPSY: Compatible with benign fibroadenoma. Overall Assessment: Benign Assessment: MG diagnostic mammo RT wo CAD - Right: Benign, BI-RAD 2. Management: Diagnostic Mammogram of the right breast in 6 months. Electronically signed and approved by: Rita Hinson M.D. Radiologist
== END ==
LOC: RADUSWWP 07:41
PROVIDERS: ATTEND Family Medicine
DX: D24.1 Benign neoplasm of right breast (principal); Z80.3 Family history of malignant neoplasm of breast
CPT/HCPCS: 88305; 77065; 19083; A4648

== ENCOUNTER → 2023-11-18 | Outpatient (CLI) | payer OTHER ==
--- NOTE | 2023-11-18 14:21 | MM ---
Reason for Exam: Follow-up at short interval from prior study. Last screening mammogram was performed 7 month(s) ago. Patient History: Menarche at age 13. First Full-Term at age 22. 05/26/2023, Benign US biopsy breast VAD RT on the right side. Maternal aunt had breast cancer, age 41. Risk Values: Swati 5 year model risk: 0.9%. NCI Lifetime model risk: 11.9%. Prior Study Comparison: 04/20/2023 Bilateral MG 3D screening mammo w/cad, [facility]. 05/10/2023 Right MG 3D work up w/cad RT, [facility]. 05/26/2023 Right MG diagnostic mammo RT wo CAD, [facility]. Tissue Density: Right: There are scattered areas of fibroglandular density. Findings: Analyzed By CAD. Pattern appears stable. Core marker is within the right breast. No significant interval change is evident. No suspicious groups of microcalcifications, spiculated or lobular masses, architectural distortion or other secondary signs of malignancy are mammographically apparent. Overall Assessment: Benign, BI-RAD 2 Management: Screening Mammogram of both breasts in 6 months. A negative mammogram report should not preclude additional follow up of suspicious palpable abnormalities. Patient should continue monthly self breast exam. A clinical breast exam by your physician is recommended on an annual basis and results should be correlated with mammographic findings. Note on Swati scores and lifetime risk: 1. A Swati score greater than 3% is considered moderate risk. If this is the case, consider specialist referral to assess eligibility for a risk reducing agent. 2. If overall lifetime risk for the development of breast cancer is 20% or higher, the patient may qualify for future screening with alternating mammogram and breast MRI. Electronically signed and approved by: Yuri Perez D.O. Radiologis
== END | disposition home or self-care (01) ==
LOC: RADMAMWWP 13:56
PROVIDERS: ATTEND Family Medicine
DX: R92.8 Other abnormal and inconclusive findings on diagnostic imaging of breast (principal); R92.321 Mammographic fibroglandular density, right breast; Z80.3 Family history of malignant neoplasm of breast
CPT/HCPCS: 77061; 77065

== ENCOUNTER → 2024-11-02 | Outpatient (CLI) | payer OTHER ==
--- NOTE | 2024-11-02 11:09 | MM ---
Reason for Exam: Follow-up at short interval from prior study. Last mammogram was performed 1 year(s) and 7 month(s) ago. Patient History: Menarche at age 13. First Full-Term at age 22. 05/26/2023, Benign US biopsy breast VAD RT on the right side. Maternal aunt had breast cancer, age 41. Risk Values: Swati 5 year model risk: 1.0%. NCI Lifetime model risk: 11.8%. Prior Study Comparison: 11/19/2011 Bilateral Screening Mammogram, [facility]. 04/20/2023 Bilateral MG 3D screening mammo w/cad, [facility]. 05/10/2023 Right US breast workup limited RT, [facility]. 05/10/2023 Right MG 3D work up w/cad RT, [facility]. 05/26/2023 Right MG diagnostic mammo RT wo CAD, [facility]. 11/18/2023 Right MG 3D diag mammo w/cad RT, [facility]. Tissue Density: There are scattered areas of fibroglandular density. Findings: Analyzed By CAD. Redemonstrated, tiny 5 mm low-density circumscribed nodule centrally in position with microclip related to prior biopsy proven fibroadenoma. No significant change from prior exams. Overall Assessment: Incomplete: need additional imaging evaluation, BI-RAD 0 Management: Diagnostic Breast Ultrasound of the right breast. As ordered. [facility], , 11/02/2024 11:07 AM. Electronically signed and approved by: Rita Hinson M.D. Radiologist
--- NOTE | 2024-11-02 11:27 | USB ---
Reason for Exam: Follow-up at short interval from prior study. Patient History: Menarche at age 13. First Full-Term at age 22. 05/26/2023, Benign US biopsy breast VAD RT on the right side. Maternal aunt had breast cancer, age 41. Risk Values: Swati 5 year model risk: 1.0%. NCI Lifetime model risk: 11.8%. Technique: Method: Targeted. Prior Study Comparison: 05/10/2023 Right MG 3D work up w/cad RT, [facility]. 05/26/2023 Right MG diagnostic mammo RT wo CAD, [facility]. 11/18/2023 Right MG 3D diag mammo w/cad RT, [facility]. Findings: The lower outer quadrant of the right breast, the axilla of the right breast and the retroareolar of the right breast were scanned. Targeted ultrasound right breast lower outer quadrant 6:00 to 9:00 including scanning of the subareolar region and axilla. The 8:00 position, 4 cm from the nipple, there is redemonstrated biopsy-proven fibroadenoma with a clip located within a hypoechoic mass currently measuring 6 x 4 x 4 mm currently versus 8 mm, previously. No other solid or cystic lesion or axillary adenopathy. Overall Assessment: Benign, BI-RAD 2 Management: Screening Mammogram of both breasts in 1 year. A clinical breast exam by your physician is recommended on an annual basis and results should be correlated with mammographic findings. This exam should not preclude additional follow-up of suspicious palpable abnormalities. Results were given to the patient verbally at the time of exam. [facility], , 11/02/2024 11:24 AM. Electronically signed and approved by: Rita Hinson M.D. Radiologist
== END | disposition home or self-care (01) ==
LOC: RADMAMWWP 10:46
PROVIDERS: ATTEND Family Medicine
DX: N63.10 Unspecified lump in the right breast, unspecified quadrant (principal); R92.323 Mammographic fibroglandular density, bilateral breasts; Z80.3 Family history of malignant neoplasm of breast
CPT/HCPCS: 77062; 77066